=== PATIENT | female | born 1945 | race Caucasian/White ===

== ENCOUNTER 2019-12-04 14:14 | Emergency (ER) | payer MEDICARE, SELFPAY ==
[2019-12-04 14:42] VITALS: BP 139/88; PULSE 109; RESP 20; TEMP 36.8; O2SAT 94
--- NOTE | 2019-12-04 14:49 | ED.GENADULT ---
HPI - General Adult General Chief complaint: Nausea/Vomiting/Diarrhea Stated complaint: vomting and diarrhea Source: patient History of Present Illness HPI narrative: Meg is a 74F with a PMH of HTN, breast cancer s/p bilateral mastectomy, overactive bladder and hypothyroidism presented to the ED ambulatory for nausea and vomiting. She has had several episodes of non bloody vomiting for about a week as well as abdominal cramping. She was doing better the last couple days except this morning she had 4 episodes of NBNB vomiting and explosive diarrhea. She also admits poor PO intake. No CP, SOB, syncope/nearsyncope, dizziness or vertigo or dysuria. Related Data Home Medications Medication Instructions Recorded Confirmed Unable to Obtain Home Medications 12/04/19 12/04/19 Allergies Allergy/AdvReac Type Severity Reaction Status Date / Time No Known Allergies Allergy Unverified 06/30/14 14:16 Review of Systems Constitutional: Constitutional: Denies chills, Reports fatigue and Denies fever(s) Eyes: Eyes: Reports no additional eye complaints ENT: Reports system reviewed and no additional complaints, except as documented Cardiovascular: Cardiovascular: Denies chest pain and Denies radiating jaw, neck or arm pain Respiratory: Respiratory: Denies cough, Denies dyspnea and Denies wheezing Gastrointestinal: Gastrointestinal: Reports no additional gastrointestinal complaints Genitourinary: Genitourinary: Reports no additional female genitourinary complaints Musculoskeletal: Musculoskeletal: Reports no additional musculoskeletal complaints Integumentary/Breasts: Skin/Breast: Reports system reviewed and no additional complaints, except as docu Neurologic: Reports system reviewed and no additional complaints, except as documented Psychiatric: Psychiatric: Reports no additional psychiatric complaints Endocrine: Endocrine: Reports no additional endocrine complaints Hematologic/Lymphatic: Hematologic/Lymphatic: Reports no additional hematologic/lymphatic complaints Allergic/Immunologic: Allergic/Immunologic: Reports no additional allergic/immunologic complaints [facility] Social History Social History Smoking status: Never smoker Gender identity (if verbalized by the patient): Female Exam Const: General: no acute distress and alert; No confusion Orientation/consciousness: patient oriented x3 Limitations: altered mental status HENMT: Other: Normal cephalic, atraumatic, slighly dry mucous membranes Eyes: Conjunctivae: conjunctivae normal Neck: Neck: normal visual inspection Resp: Effort & Inspection: normal respiratory effort, not labored and not tachypneic Auscultation: clear to auscultation bilaterally Cardio: Rate: regular rate Rhythm: regular rhythm Heart sounds: no murmurs GI: GI Palp: Yes Soft to palpation, No Tenderness to palpation present (GI) and No Guarding due to palpation present (GI) Other: normal bowel sounds, negative obturator sign, negative psoas sign, negative donaldson sign, no rebound tenderness : General: Yes no CVA tenderness Skin: General skin exam: normal color Neuro: General: patient oriented x3 and moves all extremities Extrem: General: normal to inspection Psych: Mental Status: mental status grossly normal Course Course Emergency Course: Meg was seen and evaluated. Orderd labs, 1L NS, and 4mg of zofran IV. Labs were significant for an elevated white blood cell count, slight ROBERTO with creatinine of 1.27 and slightly elevated bilirubin but were otherwise unremarkable. I believe the elevated white blood cell count is from her gastroenteritis and I believe her slight ROBERTO is from dehydration. As she was feeling better after Zofran and fluids I believe she is safe to go home. She was told to return if she has worsening symptoms or cannot eat or drink. She will follow-up with her doctor next week to have repeat lab
--- NOTE | 2019-12-04 14:51 | PC.NURSE ---
Pt does not know what medications she takes. External medication does not provide list for review. Dr Lin aware.
[2019-12-04] MEDS: SODIUM CHLORIDE 0.9% IV 1,000 ML 999 ML IV CONT (15:09)
[2019-12-04] MEDS: ONDANSETRON INJ 4 MG/2 ML VIAL IV PUSH (15:09)
[2019-12-04 15:14] LABS: Basophils Absolute Auto 0.02 K/mm3 (0.00-0.10); Basophils Percent Auto 0.1 % (0.0-1.0); Eosinophils Absolute Auto 0.06 K/mm3 (0.02-0.50); Eosinophils Percent Auto 0.3 % (1.0-6.0); Hematocrit 42.9 % (35.0-42.0); Hemoglobin 14.9 g/dL (11.7-13.8); Immature Granulocyte Absolute 0.08 K/mm3 (0.00-0.00); Immature Granulocyte Percent A 0.4 % (0.0-0.0); Lymphocytes Absolute Auto 0.23 K/mm3 (1.10-4.50); Lymphocytes Percent Auto 1.2 % (18.0-42.0); Mean Corpuscular HGB Conc 34.7 g/dL (32.0-36.0); Mean Corpuscular Hemoglobin 31.9 pg (27.0-31.0); Mean Corpuscular Volume 91.9 fL (78.0-102.0); Monocytes Absolute Auto 0.91 K/mm3 (0.10-0.90); Monocytes Percent Auto 4.8 % (2.0-11.0); Neutrophils Absolute Auto 17.8 K/mm3 (1.7-7.2); Neutrophils Percent Auto 93.2 % (50.0-70.0); Platelet Count Result 259 K/mm3 (150-420); Red Blood Count 4.67 M/mm3 (4.20-5.40); Red Cell Distribution Width 12.9 % (11.6-14.4); White Blood Count 19.1 K/mm3 (4.8-10.8)
[2019-12-04 15:31] LABS: Alanine Aminotransferase 39 U/L (14-59); Albumin Level 3.6 g/dL (3.4-5.0); Alkaline Phosphatase 33 U/L (46-116); Aspartate Amino Transferase 23 U/L (15-37); Bilirubin,Total 1.2 mg/dL (0.00-1.00); Blood Urea Nitrogen 22 mg/dL (7-18); Calcium 7.9 mg/dL (8.5-10.1); Carbon Dioxide 24 mmol/L (21-32); Chloride 104 mmol/L (98-108); Estimated CRCL calculation 37 ml/min; Estimated Glomerular Filt Rate 41; Glucose 184 mg/dL (70-99); Lipase 40 U/L (73-393); Osmolality Calculated 302 mOsm/kg (285-295); Sodium 142 mmol/L (136-145); Total Protein 6.7 g/dL (6.4-8.2)
[2019-12-04 15:32] LABS: Thyroid Stimulating Hormone 3.59 uIU/mL (0.36-3.74)
[2019-12-04 16:00] VITALS: BP 138/55; PULSE 98; RESP 18; O2SAT 96
== END 2019-12-04 16:09 | disposition home or self-care (01) ==
PROVIDERS: Emergency Provider Family Medicine; PCP Nurse Practitioner
DX: K52.9 Noninfective gastroenteritis and colitis, unspecified (principal); E03.9 Hypothyroidism, unspecified
CPT/HCPCS: 36415; 80053; 83690; 84443; 85025; 96361; 96374; 99283; 99284; J2405; J7030